=== PATIENT | male | born 1960 | race Caucasian/White ===

== ENCOUNTER 2017-01-07 08:07 | Outpatient (CLI) | payer OTHER | END 2017-01-07 08:08 | disposition home or self-care (01) | DX: R07.9 Chest pain, unspecified (principal); T84.218A Breakdown (mechanical) of internal fixation device of other bones, initial encounter ==

== ENCOUNTER 2017-02-05 15:54 | Outpatient (CLI) | payer OTHER ==
--- NOTE | 2017-02-06 10:16 | XRAY Report ---
TWO-VIEW CHEST: 02/05/2017 CLINICAL INDICATION: Osteoporosis, history of rib fractures with fixation, fractured hardware. COMPARISON: 01/07/2017 FINDINGS: Frontal and lateral views of the chest demonstrate a normal cardiac silhouette. The lungs remain clear. No effusion or pneumothorax is present. Fracture of the posterior screws of the more inferior of the two rib fixation devices is again noted. No new hardware complication is identified . IMPRESSION: STABLE APPEARANCE OF SCREW FRACTURES IN THE POSTERIOR ASPECT OF THE MORE INFERIOR OF THE TWO RIB FUSION DEVICES. JOB #: [id number] EXT JOB #:[id number]
== END 2017-02-05 15:55 | disposition home or self-care (01) ==
LOC: DI 15:54
PROVIDERS: ATTEND Family Medicine
DX: M81.0 Age-related osteoporosis without current pathological fracture (principal)
CPT/HCPCS: 71020